=== PATIENT | male | born 1960 | race Two or more races ===

== ENCOUNTER 2021-03-16 10:10 | Inpatient (IN) | payer MEDICAID ==
[~2021-03-16] VITALS: Ht 188 cm; Wt 77.1 kg
[2021-03-16] VITALS (9 sets, daily range): BP systolic 96–130; BP diastolic 53–82
[2021-03-16] MEDS ORDERED: ONDANSETRON HCL 4MG/2ML INJ IV STA ×2 (10:38→12:46)
[2021-03-16 10:46] LABS: BASOPHILS % 0.4 % (0.0-2.0); EOSINOPHILS % 0.4 % (0.0-5.0); HEMATOCRIT. 41.2 % (42.0-52.0); HEMOGLOBIN. 13.7 g/dL (14.0-18.0); LYMPHOCYTES % 14.9 % (20.0-50.0); MEAN CORPUSCULAR HEMOGLOBIN 31.5 pg (28.0-32.0); MEAN CORPUSCULAR VOLUME 94.7 fL (80.0-94.0); MEAN PLATELET VOLUME 9.6 fl (7.4-10.4); MONOCYTES % 9.9 % (2.0-8.0); NEUTROPHILS % 74.4 % (40.0-76.0); PLATELET 204 x1000/uL (130-400); RED BLOOD CELL COUNT 4.35 mill/uL (4.7-6.1); RED CELL DISTRIBUTION WIDTH 12.9 % (11.6-14.6)
[2021-03-16 10:53] LABS: CHLORIDE 103 mEq/L (98-107)
[2021-03-16 10:57] LABS: ETHANOL BLOOD < 10 mg/dL
[2021-03-16] MEDS ORDERED: MANNITOL 12.5G (25%) VIAL 50ML IV ONE (12:00)
[2021-03-16] MEDS ORDERED: LEVETIRACETAM 1000MG PREMIX 100 ML IV ONE (12:00)
[2021-03-16] MEDS ORDERED: DEXAMETHASONE 4MG/ML 1ML VIAL IV ONE (12:00)
[2021-03-16] MEDS ORDERED: DEXAMETHASONE 10 MG/ML VIAL IV NR (12:15)
[2021-03-16] MEDS ORDERED: MORPHINE SULFATE 4 MG/ML CPJ (NOT FOR IM USE) IV STA (12:46)
[2021-03-16] MEDS ORDERED: GADOTERATE MEGLUMINE 5 MMOL/10 ML VIAL IV ONE (13:51)
[2021-03-16] MEDS ORDERED: NICARDIPINE 100 MG in SODIUM CHLORIDE 0.9% 60 ML IV PRN (18:30)
[2021-03-16 19:24] LABS: CLARITY URINE CLEAR (CLEAR); COLOR URINE YELLOW (YELLOW); KETONES URINE 1+ (NEGATIVE); LEUKOCYTE ESTERASE URINE NEGATIVE (NEGATIVE); NITRITE URINE NEGATIVE (NEGATIVE); OCCULT BLOOD URINE NEGATIVE (NEGATIVE); PH URINE 6.5 (4.5-8.0); PROTEIN URINE NEGATIVE (NEGATIVE); SPECIFIC GRAVITY URINE 1.013 (1.005-1.030); UROBILINOGEN URINE 0.2 E.U./dL (0.2-1.0)
[2021-03-16 19:43] LABS: *BARBITURATES SCREEN URINE NEGATIVE (NEGATIVE)
[2021-03-16 19:44] LABS: *AMPHETAMINES SCREEN URINE NEGATIVE (NEGATIVE); *BENZODIAZEPINES SCREEN URINE NEGATIVE (NEGATIVE); *COCAINE SCREEN URINE NEGATIVE (NEGATIVE); METHADONE URINE SCREEN NEGATIVE (NEGATIVE); OPIATES URINE SCREEN PRESUMTIVE POSITIVE (NEGATIVE); PHENCYCLIDINE URINE SCREEN NEGATIVE (NEGATIVE)
[2021-03-16 19:45] LABS: CANNABINOID URINE SCREEN NEGATIVE (NEGATIVE)
[2021-03-16] MEDS ORDERED: NALOXONE HCL 0.4MG/ML VIAL IV PRN (20:45)
[2021-03-16] MEDS: DEXT 5%/LACTATED RINGERS 1,000 ML IV SCH (20:46)
[2021-03-16] MEDS: MORPHINE SULFATE 2 MG/ML CPJ (NOT FOR IM USE) IV PRN (21:24)
[2021-03-16] MEDS: DEXAMETHASONE 4MG/ML 1ML VIAL IV SCH (23:22)
[2021-03-17] VITALS (45 sets, daily range): BP systolic 106–147; BP diastolic 34–112
[2021-03-17] MEDS: MORPHINE SULFATE 2 MG/ML CPJ (NOT FOR IM USE) IV PRN ×5 (00:09→21:15)
[2021-03-17] MEDS: DEXAMETHASONE 4MG/ML 1ML VIAL IV SCH ×4 (05:04→23:13)
[2021-03-17 06:21] LABS: CHLORIDE 108 mEq/L (98-107)
[2021-03-17 06:27] LABS: BASOPHILS % 0.2 % (0.0-2.0); HEMATOCRIT. 40.7 % (42.0-52.0); HEMOGLOBIN. 13.7 g/dL (14.0-18.0); MEAN CORPUSCULAR HEMOGLOBIN 31.7 pg (28.0-32.0); MEAN CORPUSCULAR VOLUME 94.1 fL (80.0-94.0); MONOCYTES % 4.9 % (2.0-8.0); NEUTROPHILS % 86.9 % (40.0-76.0); PLATELET 200 x1000/uL (130-400); RED BLOOD CELL COUNT 4.33 mill/uL (4.7-6.1); RED CELL DISTRIBUTION WIDTH 12.7 % (11.6-14.6)
[2021-03-17] MEDS ORDERED: PANTOPRAZOLE SODIUM 40 MG/VIAL IV SCH (09:00)
[2021-03-17] MEDS: DEXT 5%/LACTATED RINGERS 1,000 ML IV SCH (17:16)
[2021-03-18] VITALS (68 sets, daily range): BP systolic 99–155; BP diastolic 49–108
[2021-03-18] MEDS: MORPHINE SULFATE 2 MG/ML CPJ (NOT FOR IM USE) IV PRN ×7 (02:26→23:34)
[2021-03-18] MEDS: DEXT 5%/LACTATED RINGERS 1,000 ML IV SCH (05:00)
[2021-03-18 05:35] LABS: CHLORIDE 107 mEq/L (98-107)
[2021-03-18 05:37] LABS: HEMATOCRIT. 39.9 % (42.0-52.0); HEMOGLOBIN. 13.2 g/dL (14.0-18.0); MEAN CORPUSCULAR VOLUME 93.6 fL (80.0-94.0); MEAN PLATELET VOLUME 10.3 fl (7.4-10.4); PLATELET 212 x1000/uL (130-400); RED BLOOD CELL COUNT 4.26 mill/uL (4.7-6.1); RED CELL DISTRIBUTION WIDTH 12.9 % (11.6-14.6)
[2021-03-18 05:52] LABS: INR 1.1; PARTIAL THROMBOPLASTIN TIME 24.1 sec (23.4-31.0); PROTHROMBIN TIME 11.8 sec (9.6-11.0)
[2021-03-18] MEDS: DEXAMETHASONE 4MG/ML 1ML VIAL IV SCH ×4 (05:58→23:32)
[2021-03-18] MEDS ORDERED: LIDOCAINE HCL/EPINEPHRINE 1%-EPI 1:100,000 20 ML VIAL ONE (06:28)
[2021-03-18] MEDS ORDERED: BACITRACIN 15GM TUBE TOP ONE (06:29)
[2021-03-18] MEDS ORDERED: GENTAMICIN SULF 40MG/ML 2ML VIAL ONE (06:29)
[2021-03-18] MEDS ORDERED: THROMBIN (BOVINE) 5000 UNITS/VIAL TOP ONE (07:00)
[2021-03-18] MEDS ORDERED: GLYCOPYRROLATE 0.2 MG/ML 2ML VIAL ONE ×2 (07:08→09:42)
[2021-03-18] MEDS ORDERED: MIDAZOLAM HCL 2 MG/2 ML VIAL ONE (07:08)
[2021-03-18] MEDS ORDERED: NEOSTIGMINE METHYLSULFATE 1MG/ML 10 ML VIAL ONE (07:08)
[2021-03-18] MEDS ORDERED: PROPOFOL 200MG/20ML VIAL IV ONE ×2 (07:08→07:59)
[2021-03-18] MEDS ORDERED: ROCURONIUM BROMIDE 10MG/ML VIAL 5ML IV ONE ×2 (07:08→08:44)
[2021-03-18] MEDS ORDERED: FENTANYL CITRATE/PF 50MCG/ML 2ML VIAL ONE ×2 (07:08→07:54)
[2021-03-18] MEDS ORDERED: MANNITOL 20% 500 ML IV ONE (07:20)
[2021-03-18] MEDS ORDERED: ONDANSETRON HCL 4MG/2ML INJ ONE (07:54)
[2021-03-18] MEDS ORDERED: DEXAMETHASONE 4MG/ML 1ML VIAL ONE (07:54)
[2021-03-18 09:53] LABS: NUCLEATED RED BLOOD CELLS 1 /100 WBC; PLATELET ESTIMATE NORMAL
[2021-03-18] MEDS ORDERED: LEVETIRACETAM 500MG PREMIX 100 ML IV ONE (10:06)
[2021-03-18] MEDS: LEVETIRACETAM 500MG PREMIX 100 ML IV SCH ×2 (12:00→21:01)
[2021-03-18] MEDS: NICARDIPINE 100 MG in SODIUM CHLORIDE 0.9% 60 ML IV PRN ×2 (13:04→21:22)
[2021-03-18] MEDS: CEFAZOLIN 1000MG PREMIX 50 ML IV SCH ×2 (13:05→22:03)
[2021-03-18] MEDS ORDERED: CEFAZOLIN SODIUM 1000MG/VIAL IV SCH (14:00)
[2021-03-19] VITALS (91 sets, daily range): BP systolic 91–140; BP diastolic 44–79
[2021-03-19] MEDS: MORPHINE SULFATE 2 MG/ML CPJ (NOT FOR IM USE) IV PRN ×6 (02:55→23:10)
[2021-03-19] MEDS: DEXT 5%/LACTATED RINGERS 1,000 ML IV SCH ×2 (03:25→12:55)
[2021-03-19] MEDS: NICARDIPINE 100 MG in SODIUM CHLORIDE 0.9% 60 ML IV PRN ×2 (04:53→12:47)
[2021-03-19] MEDS: CEFAZOLIN 1000MG PREMIX 50 ML IV SCH ×3 (05:38→22:04)
[2021-03-19] MEDS: DEXAMETHASONE 4MG/ML 1ML VIAL IV SCH ×3 (05:38→17:59)
[2021-03-19] MEDS: LEVETIRACETAM 500MG PREMIX 100 ML IV SCH ×2 (08:36→21:11)
[2021-03-19] MEDS ORDERED: DIATR MEGLU/DIATRIZOATE SOLN 30ML PO SCH (10:15)
[2021-03-19] MEDS ORDERED: IPRATROPIUM/ALBUTEROL 0.5-3(2.5)MG/3ML NEB HHN PRN (10:15)
[2021-03-19] MEDS ORDERED: IOHEXOL-300 100 ML BOTTLE ONE (21:05)
[2021-03-20] VITALS (95 sets, daily range): BP systolic 73–209; BP diastolic 46–206
[2021-03-20] MEDS: DEXAMETHASONE 4MG/ML 1ML VIAL IV SCH ×4 (00:13→18:02)
[2021-03-20] MEDS: NICARDIPINE 100 MG in SODIUM CHLORIDE 0.9% 60 ML IV PRN (00:25)
[2021-03-20] MEDS: CEFAZOLIN 1000MG PREMIX 50 ML IV SCH ×2 (05:17→13:36)
[2021-03-20] MEDS: LEVETIRACETAM 500MG PREMIX 100 ML IV SCH ×2 (08:58→20:44)
[2021-03-20] MEDS ORDERED: GADOTERATE MEGLUMINE 5 MMOL/10 ML VIAL IV ONE (11:55)
[2021-03-20] MEDS ORDERED: CLONIDINE 0.1MG TABLET PO PRN (15:00)
[2021-03-20] MEDS ORDERED: HYDRALAZINE 20MG/ML VIAL IV PRN (15:00)
[2021-03-20] MEDS: AMLODIPINE 10MG TABLET PO SCH (15:43)
[2021-03-20] MEDS ORDERED: MAGNESIUM HYDROXIDE 400MG/5ML 30ML UDC PO PRN (16:30)
[2021-03-20] MEDS ORDERED: MAGNESIUM/ALUMINUM HYDROXIDE/SIMETHICONE 30ML UDC PO PRN (16:30)
[2021-03-20] MEDS ORDERED: SENNOSIDES 8.6MG TABLET PO PRN (16:30)
[2021-03-20] MEDS: DOCUSATE SODIUM 100MG CAPSULE PO SCH (18:02)
[2021-03-20] MEDS: OMEPRAZOLE 20MG CAPSULE EXTENDED RELEASE PO SCH (20:44)
[2021-03-21] VITALS (39 sets, daily range): BP systolic 88–156; BP diastolic 35–116
[2021-03-21] MEDS: DEXAMETHASONE 4MG/ML 1ML VIAL IV SCH ×5 (00:31→23:57)
[2021-03-21] MEDS: OMEPRAZOLE 20MG CAPSULE EXTENDED RELEASE PO SCH (06:10)
[2021-03-21] MEDS: MORPHINE SULFATE 2 MG/ML CPJ (NOT FOR IM USE) IV PRN (06:48)
[2021-03-21] MEDS: DOCUSATE SODIUM 100MG CAPSULE PO SCH ×2 (09:43→17:00)
[2021-03-21] MEDS: AMLODIPINE 10MG TABLET PO SCH (09:44)
[2021-03-21] MEDS: LEVETIRACETAM 500MG PREMIX 100 ML IV SCH (09:44)
[2021-03-21] MEDS ORDERED: HYDROCODONE/ACETAMINOPHEN 5/325MG TABLET PO PRN (14:45)
[2021-03-21] MEDS: LEVETIRACETAM 500MG TABLET PO SCH (22:20)
[2021-03-21] MEDS: FAMOTIDINE 20MG TABLET PO SCH (22:20)
[2021-03-22] VITALS: BP 126/71
[2021-03-22 04:00] VITALS: BP 134/77
[2021-03-22] MEDS: DEXAMETHASONE 4MG/ML 1ML VIAL IV SCH (06:11)
[2021-03-22] MEDS: FAMOTIDINE 20MG TABLET PO SCH (06:11)
[2021-03-22 08:00] VITALS: BP 134/86
[2021-03-22] MEDS: AMLODIPINE 10MG TABLET PO SCH (09:00)
[2021-03-22] MEDS: DOCUSATE SODIUM 100MG CAPSULE PO SCH (09:00)
[2021-03-22] MEDS: LEVETIRACETAM 500MG TABLET PO SCH (09:20)
[2021-03-22] MEDS ORDERED: IBUPROFEN 600MG TABLET PO PRN (12:00)
[2021-03-22] MEDS ORDERED: AMLO10TA4 PO (15:57)
[2021-03-22] MEDS ORDERED: KEPPSOL GT (15:59)
[2021-03-22 16:00] VITALS: BP 135/84
[2021-03-22] MEDS ORDERED: IBUP-2029 PO (16:00)
[2021-03-22] MEDS ORDERED: DEXAMETHASONE 2MG TABLET PO SCH (21:00)
== END 2021-03-22 17:41 | disposition home or self-care (01) | DRG 21 ==
LOC: ER 10:10 → MICUNO 17:28 → EDBEDREQ 17:52 → EDBEDREQTM 17:52 → ENRESERV 18:00 → 6EST 03-21 11:00
PROVIDERS: ADMIT Internal Medicine; ATTEND Internal Medicine
PROC: 009600Z Drainage of Cerebral Ventricle with Drainage Device, Open Approach (ICD-10-PCS; principal; 2021-03-18)
PROC: 0NR00JZ Replacement of Skull with Synthetic Substitute, Open Approach (ICD-10-PCS; 2021-03-18)
PROC: 00U207Z Supplement Dura Mater with Autologous Tissue Substitute, Open Approach (ICD-10-PCS; 2021-03-18)
PROC: 4A103BD Monitoring of Intracranial Pressure, Percutaneous Approach (ICD-10-PCS; 2021-03-18)
PROC: 00H632Z Insertion of Monitoring Device into Cerebral Ventricle, Percutaneous Approach (ICD-10-PCS; 2021-03-18)
PROC: 00B00ZZ Excision of Brain, Open Approach (ICD-10-PCS; 2021-03-18)
DX: D49.6 Neoplasm of unspecified behavior of brain (principal); G93.6 Cerebral edema; G93.40 Encephalopathy, unspecified; C79.31 Secondary malignant neoplasm of brain; M43.6 Torticollis; I10 Essential (primary) hypertension; J44.9 Chronic obstructive pulmonary disease, unspecified; Z20.822 Contact with and (suspected) exposure to COVID-19; R26.2 Difficulty in walking, not elsewhere classified; G81.91 Hemiplegia, unspecified affecting right dominant side; Z92.21 Personal history of antineoplastic chemotherapy; Z92.3 Personal history of irradiation; Z79.899 Other long term (current) drug therapy
CPT/HCPCS: 36415; 70553; 71045; 71260; 74177; 76998; 80048; 80053; 80305; 80320; 81003; 82378; 83615; 84484; 85025; 86850; 86900; 87426; 88305; 88331; 92523; 93005; 97116; 97162; 97166; 97530; 99291; A9577; C1713; C1725; C1758; C9113; J0360; J0690; J1100; J1580; J1953; J2150; J2250; J2270; J2405; J2704; J2710; J3010; J3490; J7040; J7050; J7120; J8540; Q9963; Q9967; A4315; G0480

== ENCOUNTER 2021-04-02 10:56 | Emergency (ER) | payer MEDICAID ==
[~2021-04-02 10:56] MED LIST: AMLO10TA4 PO; IBUP-2029 PO; KEPPSOL GT
== END 2021-04-02 11:53 | disposition left against medical advice (07) ==
LOC: ER 10:56
DX: Z53.21 Procedure and treatment not carried out due to patient leaving prior to being seen by health care provider (principal)